=== PATIENT | male | born 1935 | race Caucasian/White ===

== ENCOUNTER 2025-01-01 08:59 | Emergency (ER) | payer OTHER ==
[2025-01-01 09:41] VITALS: BP 133/68; PULSE 61; RESP 18; TEMP 98.7; BMI 28.2
[2025-01-01 10:55] LABS: ABSOLUTE IMMATURE GRANULOCYTES 0.02 x10^3/uL (0.0-0.031); BASOPHILS # 0.03 x10^3/uL (0.01-0.08); EOSINOPHIL % 1.1 % (0.8-7.0); EOSINOPHILS # 0.16 x10^3/uL (0.04-0.54); MCHC 33.2 g/dl (32.3-36.5); MEAN CELL VOLUME 89.3 fl (79.0-92.2); MEAN PLT VOLUME 10.4 fl (9.4-12.4); MONOCYTE # 1.39 x10^3/uL (0.30-0.82); MONOCYTE % 9.3 % (5.3-12.2); RDW 13.0 % (12.6-16.6)
[2025-01-01 11:15] LABS: ALK PHOS 98.0 U/L (45-117); CO2 23.0 mmol/L (21-32); CREATININE 1.8 mg/dl (0.6-1.3); GLUCOSE,RANDOM 128.0 mg/dl (74-106); SGOT/AST 23.0 U/L (15-37); SGPT/ALT 21.0 U/L (7-52); TOT PROT 7.3 g/dl (6.4-8.2)
[2025-01-01 15:59] LABS: HCV DIAGNOSTIC IN-HOUSE W/RFLX NON-REACTIVE (NONREACTIVE); HIV INTERPRETATION NEGATIVE (NEGATIVE)
== END 2025-01-01 12:45 | disposition home or self-care (01) ==
LOC: FER 08:59
DX: N39.0 Urinary tract infection, site not specified (principal); R31.9 Hematuria, unspecified; R30.0 Dysuria
CPT/HCPCS: 36415; 80053; 81003; 81015; 85025; 86803; 87086; 87389; 96374; 99284-25